=== PATIENT | male | born 1990 | race African-American/Black ===

== ENCOUNTER 2025-04-08 09:54 | Emergency (ER) | payer OTHER ==
[2025-04-08 10:08] VITALS: RESP 18; BMI 41.5
[2025-04-08 13:12] VITALS: BP 142/101; PULSE 90; TEMP 98.1
== END 2025-04-08 13:31 | disposition home or self-care (01) ==
LOC: JER 09:54
DX: S09.90XA Unspecified injury of head, initial encounter (principal); W10.8XXA Fall (on) (from) other stairs and steps, initial encounter; Y99.0 Civilian activity done for income or pay
CPT/HCPCS: 70450-TC; 72125-TC; 73110-TC-RT-FY; 73130-TC-RT-FY; 99284-25